=== PATIENT | female | born 1940 | race Caucasian/White ===

== ENCOUNTER 2016-12-09 08:35 | Inpatient (IN) | payer OTHER ==
[~2016-12-09 08:35] MED LIST: CIPRO250 MG PO; FOSAMAX70 MG PO; MULTIVITAMIN1 TAB PO; NASACORT AQ16.5 G1 NS; OMEPRAZOLE20 M2 PO; PRAVACHOL20 MG PO; PRAVASTATIN; REFLUX MED
[2016-12-09] MEDS ORDERED: MUCINEX600 M1 PO (13:36)
[2016-12-09] MEDS ORDERED: ASPIRIN EC81 MG PO (13:37)
[2016-12-09] MEDS ORDERED: ALLEGRA ALLERG180 M1 PO (13:37)
[2016-12-09] MEDS ORDERED: VITAMIN D31000 UNI3 PO (13:37)
[2016-12-09] MEDS ORDERED: MIRALAX17 G2 PO (13:37)
[2016-12-09] MEDS ORDERED: COLACE100 M1 PO (13:37)
[2016-12-09] MEDS ORDERED: ADVIL200 M2 PO (13:38)
[2016-12-09 13:39] LABS: BASO % 0.2 % (0-2); EOS % 0.6 % (0-7); EOSINOPHIL ABSOLUTE COUNT 0.1 tho/cmm (0.0-0.7); HCT-HEMATOCRIT 36.7 % (34.0-49.0); IMMATURE GRANULOCYTES ABSOLUTE 0.04 tho/cmm (0-0.03); IMMATURE GRANULOCYTES PERCENT 0.4 % (0-0.3); LYMPH % 6.9 % (20-45); LYMPH ABSOLUTE COUNT 0.7 tho/cmm (0.8-4.5); MCH (MEAN CORPUSCULAR HGB) 29.6 pg (28.0-32.0); MCHC MEAN CORPUSCULAR HGB CONC 32.7 % (32.0-36.0); MCV (MEAN CELL VOLUME) 90.4 fl (82.0-96.0); MEAN PLATELET VOLUME 10.4 cmc (9.4-12.4); MONO % 8.8 % (0-12); MONOCYTE ABSOLUTE COUNT 0.9 tho/cmm (0.0-1.2); NEUTROPHIL ABSOLUTE COUNT 8.6 tho/cmm (1.6-8.0); NEUTROPHIL-AUTOMATED 8.6 tho/cmm (1.6-8.0); NEUTROPHILS % 83.1 % (40-80); PLATELET COUNT 165 tho/cmm (150-450); RED BLOOD COUNT 4.06 mil/cmm (4.00-5.20); RED CELL DISTRIBUTION WIDTH 13.6 % (12.4-16.4); WHITE BLOOD COUNT 10.3 tho/cmm (4.0-10.0)
[2016-12-09] MEDS ORDERED: [UNRECOGNIZED DRUG - OTHER] PO (13:39)
[2016-12-09] MEDS ORDERED: PROBIOTIC1 EA10 PO (13:39)
[2016-12-09 13:50] LABS: ALB/GLOB RATIO 0.9 (0.8-2.0); ALBUMIN 3.2 g/dl (3.5-5.0); ALKALINE PHOSPHATASE 48 U/L (33-138); ALT/SGPT 25 U/L (12-78); BILIRUBIN,TOTAL 0.3 mg/dl (0-1.5); BLOOD UREA NITROGEN 16 mg/dl (6-24); CALCIUM 8.1 mg/dl (8.5-10.5); CARBON DIOXIDE-VENOUS 27 mmol/L (22-32); CHLORIDE 108 mmol/l (96-110); CREATININE 0.79 mg/dl (0.50-1.10); GLUCOSE 120 mg/dL (70-110); SODIUM 142 mmol/L (135-145); eGFR VALUE FOR BLACK 85 mL/Min
[2016-12-09] MEDS ORDERED: DEXILANT60 M1 PO (14:03)
[2016-12-09] MEDS ORDERED: EYE DROPS EACH EYE (14:03)
[2016-12-09] MEDS ORDERED: PRAVACHOL20 M1 PO (14:03)
[2016-12-09] MEDS ORDERED: FOSAMAX70 M1 PO (14:04)
[2016-12-09 14:07] LABS: ANION GAP 11 mmol/L (0-20); AST/SGOT 31 U/L (10-40); POTASSIUM 3.7 mmol/L (3.7-5.1)
[2016-12-14 04:42] LABS: BASO % 0.4 % (0-2); EOSINOPHIL ABSOLUTE COUNT 0.3 tho/cmm (0.0-0.7); HCT-HEMATOCRIT 33.1 % (34.0-49.0); HGB-HEMOGLOBIN 10.8 gm/dl (12.0-15.5); IMMATURE GRANULOCYTES ABSOLUTE 0.05 tho/cmm (0-0.03); LYMPH % 14.5 % (20-45); LYMPH ABSOLUTE COUNT 0.8 tho/cmm (0.8-4.5); MCH (MEAN CORPUSCULAR HGB) 29.6 pg (28.0-32.0); MCHC MEAN CORPUSCULAR HGB CONC 32.6 % (32.0-36.0); MCV (MEAN CELL VOLUME) 90.7 fl (82.0-96.0); MONO % 19.5 % (0-12); NEUTROPHIL ABSOLUTE COUNT 3.1 tho/cmm (1.6-8.0); NEUTROPHIL-AUTOMATED 3.1 tho/cmm (1.6-8.0); NEUTROPHILS % 59.6 % (40-80); PLATELET COUNT 219 tho/cmm (150-450); RED BLOOD COUNT 3.65 mil/cmm (4.00-5.20); RED CELL DISTRIBUTION WIDTH 13.8 % (12.4-16.4); WHITE BLOOD COUNT 5.2 tho/cmm (4.0-10.0)
[2016-12-14 04:49] LABS: ANION GAP 8 mmol/L (0-20); BLOOD UREA NITROGEN 14 mg/dl (6-24); CALCIUM 7.9 mg/dl (8.5-10.5); CARBON DIOXIDE-VENOUS 32 mmol/L (22-32); CHLORIDE 101 mmol/l (96-110); GLUCOSE 107 mg/dL (70-110); POTASSIUM 3.6 mmol/L (3.7-5.1); SODIUM 137 mmol/L (135-145); eGFR VALUE FOR BLACK >90 mL/Min
[2016-12-14] MEDS ORDERED: NORCO 5-325 TA1 EACH PO (09:30)
[2016-12-14] MEDS ORDERED: NUCYNTA50 M1 PO (09:30)
== END 2016-12-14 13:30 | disposition home health service (06) | DRG 536 ==
LOC: EDMED 08:35 → EMR2 15:49 → 5EA 15:50 → 5EC 12-11 05:11
PROVIDERS: Emergency Medicine; Internal Medicine Cardiovascular Disease; ADMIT Internal Medicine
DX: S32.502A Unspecified fracture of left pubis, initial encounter for closed fracture (principal); S32.501A Unspecified fracture of right pubis, initial encounter for closed fracture; D64.89 Other specified anemias; E78.5 Hyperlipidemia, unspecified; M81.0 Age-related osteoporosis without current pathological fracture; W18.09XA Striking against other object with subsequent fall, initial encounter; Z85.3 Personal history of malignant neoplasm of breast; Z88.2 Allergy status to sulfonamides; Y92.238 Other place in hospital as the place of occurrence of the external cause
CPT/HCPCS: G8978-GP-CL; G8979-GP-CK; J2270; J2405; J7030